=== PATIENT | male | born 1975 | race Caucasian/White ===

== ENCOUNTER 2022-09-25 17:45 | Inpatient (IN) | payer BC ==
[~2022-09-25] VITALS: Ht 180.3 cm; Wt 167.6 kg
[2022-09-25 18:19] LABS: BASOPHILS ABSOLUTE AUTO 0.02 K/mm3 (0.00-0.23); BASOPHILS PERCENT AUTO 0 % (0-2); EOSINOPHILS ABSOLUTE AUTO 0.03 K/mm3 (0.00-0.68); EOSINOPHILS PERCENT AUTO 0 % (0-6); Hematocrit 42.4 % (37.0-53.0); Hemoglobin 14.1 g/dL (13.5-17.5); IMMATURE GRAN ABSOLUTE AUTO 0.01 K/mm3 (0.00-0.10); IMMATURE GRAN PERCENT AUTO 0 % (0-1); LYMPHOCYTES ABSOLUTE AUTO 1.82 K/mm3 (0.84-5.20); LYMPHOCYTES PERCENT AUTO 23 % (21-46); MONOCYTES ABSOLUTE AUTO 0.68 K/mm3 (0.16-1.47); MONOCYTES PERCENT AUTO 9 % (4-13); Mean Corpuscular HGB 29.1 pg (26.0-34.0); Mean Corpuscular HGB Conc 33.3 g/dL (31.5-36.5); Mean Corpuscular Volume 88 fL (80-100); NEUTROPHILS ABSOLUTE AUTO 5.32 K/mm3 (1.96-9.15); NEUTROPHILS PERCENT AUTO 68 % (41-73); Platelet Count 248 K/mm3 (150-400); RDW Coefficient Variation 14.1 % (11.7-14.2); Red Blood Cell Count 4.84 M/mm3 (4.30-5.90); White Blood Cell Count 7.88 K/mm3 (4.00-11.30)
[2022-09-25 18:43] LABS: Albumin, Blood 3.8 g/dL (3.4-5.0); Bilirubin, Total 0.3 mg/dL (0.1-1.0); Bun/Creatinine Ratio 12.5 (12.0-20.0); Calcium, Blood 9.3 mg/dL (8.5-10.1); Creatinine, Blood 0.72 mg/dL (0.60-1.20); Globulin, Blood 3.8 g/dL (2.2-4.0); Potassium, Blood 3.9 mmol/L (3.5-5.5); Total Protein, Blood 7.6 g/dL (6.4-8.2)
[2022-09-25 19:06] LABS: Influenza A, PCR NEGATIVE (NEGATIVE); Influenza B, PCR NEGATIVE (NEGATIVE); Resp Syncytial Virus, PCR NEGATIVE (NEGATIVE); SARS-Cov-2 (COVID-19) PCR, MMC NEGATIVE (NEGATIVE)
--- NOTE | 2022-09-26 02:03 | NUR ---
ADMIT NOTE 47 YR OLD MALE ADMITTED TO FLOOR FROM THE ED WITH DX OF CHF EXACERBATION. ALERT AND ORIENTED X 4. DENIES PAIN. SOME SOB WITH EXERTION. SATS OVER 90% ROOM AIR. ORIENTED TO USE OF CALL LIGHT, CALL LIGHT IN REACH. RAILS UP X 3. DENIES CHEST PRESSURE. STATES FEELS LIKE "SPRAIN A MUSCLE" AND POINTS TO UPPER CENTRAL CHEST.
[2022-09-26 04:02] LABS: U Amphetamine Screen Not Detected; U Barbituate Screen Not Detected; U Benzodiazapine Screen Not Detected; U Buprenorphine Screen Not Detected; U Cannabinoids Screen Not Detected; U Cocaine Screen Not Detected; U Methadone Screen Not Detected; U Methamphetamine Screen Not Detected; U Opiates Screen Not Detected; U Oxycodone Screen Not Detected; U Phencyclidine Screen Not Detected; U Propoxyphene Screen Not Detected
--- NOTE | 2022-09-26 04:40 | NUR ---
HIGH SCHOOL COACH SUMMARY ADMITTED TO FLOOR EARLIER WITH CHF, ED RN REPORTED HAD CHEST CT - REVEALED SOME CHEST FLUIDS AFFIRMING CHF. HAD RECEIVED LASIX IN THE ED. AND POSSIBLE SLEEP APNEA. ONCE UP ON THE FLOOR, ALERT AND ORIENTED. REFUSED FLU SHOT. DENIED CHEST TYREE, REPORTED FELT LIKE A "SPRAIN" IN THE MUSCLE. VSS. HOB ELEVATED. LATER IN THE SHIFT, NOTED PT VOICED HAD DIFFICULTY BREATHING. MD NOTIFIED AND O2 ORDERED - RT NOTIFIED AND WILL FOLLOW UP. O2 AT 3L/MIN PER NC EFFECTIVE. RESTING QUIETLY AT THIS TIME. CALL LIGHT IN REACH. WILL CONTINUE TO MONITOR
[2022-09-26 05:40] LABS: Bun/Creatinine Ratio 13.9 (12.0-20.0); Calcium, Blood 8.7 mg/dL (8.5-10.1); Creatinine, Blood 0.72 mg/dL (0.60-1.20); Potassium, Blood 3.4 mmol/L (3.5-5.5)
--- NOTE | 2022-09-26 18:22 | NUR ---
SHIFT SUMMARY: PT A/O X 4 IND IN ROOM. PT WAS DROWSY MOST OF THE DAY REPORTING HE DID NOT GET ANY SLEEP LAST NIGHT. BP CONTINUE TO BE ELEVATED. PT DENIES CP OR SOB AT REST OR WITH ACTIVITY. TELE REPORTS NSR. PT URINATING WELL CLEAR YELLOW URINE WITH LASIX GIVEN. PT TOLERATING WELL. CPAP TO BE STARTED TONIGHT. PT AWARE. ECHO COMPLETED THIS AFTERNOON.
--- NOTE | 2022-09-27 02:14 | NUR ---
TELEMETRY EVENT THIS RN NOTIFIED OF 30-BEAT RUN OF V-TACH. BP 143/100, HR 107. THE PATIENT WAS SLEEPING WHEN THIS RN ENTERED THE ROOM. HE DENIED CHEST PAIN OR OTHER SYMTPOMS. DR. CARRILLO WAS CONTACTED AND INFORMED OF THE SITUATION. LAB ORDER OBTAINED. THIS RN WILL PROMPTLY NOTIFY DR. CARRILLO OF ANY ABNORMALITIES. WILL CONTINUE TO CLOSELY MONITOR.
--- NOTE | 2022-09-27 04:46 | NUR ---
DIRECTOR OF CODING SUMMARY REFER TO PREVIOUS NOTE REGARDING EPISODE OF V-TACH. A&OX4. PATIENT EFFECTIVELY COMMUNICATES NEEDS. PATIENT DENIES SYMPTOMS OF CHEST PAIN OR SHORTNESS OF BREATH. APAP ORDER OBTAINED SECONDARY TO ONSET OF RIGHT KNEE PAIN. PATIENT IS UNABLE TO STATE KNOWN INJURY. APAP NOT ADMINISTERED DUE TO PATIENT OBSERVED TO BE SLEEPING. BED LOW AND LOCKED. CALL LIGHT WITHIN REACH. THIS RN WILL CONTINUE TO MONITOR. DR. CARRILLO NOTIFIED OF PATIENT'S BP AND HR. NO NEW ORDERS AT THIS TIME.
[2022-09-27 06:03] LABS: Calcium, Blood 9.3 mg/dL (8.5-10.1); Creatinine, Blood 0.74 mg/dL (0.60-1.20); Magnesium, Blood 2.2 mg/dL (1.6-2.4); Potassium, Blood 3.3 mmol/L (3.5-5.5)
--- NOTE | 2022-09-27 17:30 | NUR ---
EVENING NOTE PT ALERT AND ORIENTED. UP ADLIB. HE DOESN'T ALWAYS US THE URINAL IN THE BATHROOM. ENCOURAGED FOR STRICT I/O. PT C/O OF LEFT MEDIAL KNEE PAIN. AREA PAINFUL TO GENTLY PALPATION. NO HEMATOMS OR SWELLING NOTED. HE CORRALATES IT TO THE LOVENOX INJECTION. HE REFUSED THE LOVENOX TODAY. LUNGS CTA, DECREASED BASES. VOICE QULAIT YLCER AND STRONG. NO SOB WITH AMBULATION TO BATHROOM. LASIX IV GIVEN PER ORDER. CONTINIOUS BIOX AT BEDSIDE D/T CPAP USE. SAT 95% RA WITH HR 108BPM. TELEMETRY SHOWING SINUS TACH. NO ECTOPY NOTED TODAY. CONTINUE POC.
--- NOTE | 2022-09-28 05:11 | NUR ---
OPERATIONS ENGINEER SUMMARY NO ACUTE EVENTS THROUGHOUT THE NIGHT. A&OX4. PATIENT EFFECTIVELY COMMUNICATES NEEDS. VSS. RR EVEN AND UNLABORED ON RA. NO REPORTS OF PAIN OR OTHER SYMPTOMS THIS SHIFT. PATIENT IS TOLERATING DIURETIC THERAPY. CPAP DONNED WHILE SLEEPING WITHOUT ANY REPORTED ISSUES. BED LOW AND LOCKED. CALL LIGHT WITHIN REACH. THIS RN WILL CONTINUE TO MONITOR.
[2022-09-28 08:21] LABS: Albumin, Blood 3.5 g/dL (3.4-5.0); Anion Gap 7 mmol/L (6-16); Blood Urea Nitrogen 23 mg/dL (8-24); Bun/Creatinine Ratio 31.3 (12.0-20.0); CHOL/HDL RATIO 4.7; CO2, Blood 27 mmol/L (21-32); Calcium, Blood 9.3 mg/dL (8.5-10.1); Chloride, Blood 100 mmol/L (98-108); Cholesterol 205 mg/dL (50-200); Creatinine, Blood 0.73 mg/dL (0.60-1.20); Glomerular Filtration Rate 112 (60-); Glucose, Blood 121 mg/dL (70-99); HDL Cholesterol 44 mg/dL (>39); LDL/HDL RATIO 3.2; Low Density Lipoprotein Chol 140 mg/dL (0-110); Phosphorus, Blood 4.9 mg/dL (2.5-4.9); Potassium, Blood 3.9 mmol/L (3.5-5.5); Sodium, Blood 134 mmol/L (136-145); Triglycerides 104 mg/dL (30-160); Very Low Density Lipoprot Chol 20 mg/dL (6-32)
[2022-09-29 06:00] LABS: Albumin, Blood 3.7 g/dL (3.4-5.0); Anion Gap 5 mmol/L (6-16); Blood Urea Nitrogen 32 mg/dL (8-24); Bun/Creatinine Ratio 34.1 (12.0-20.0); CO2, Blood 29 mmol/L (21-32); Calcium, Blood 9.5 mg/dL (8.5-10.1); Chloride, Blood 100 mmol/L (98-108); Creatinine, Blood 0.94 mg/dL (0.60-1.20); Glomerular Filtration Rate 100 (60-); Glucose, Blood 113 mg/dL (70-99); Phosphorus, Blood 4.7 mg/dL (2.5-4.9); Potassium, Blood 3.7 mmol/L (3.5-5.5); Sodium, Blood 134 mmol/L (136-145)
--- NOTE | 2022-09-29 07:42 | NUR ---
SHIFT SUMMARY NO ACUTE CHANGES THIS SHIFT. PT AXO AND INDEPENDENT TO THE BATHROOM. HAS A NIGHTOME OXYGEN STUDY TO DETERMINE IS PT NEEDS OXYGEN AT HOME. PT TO RECIEVE INSTRUCTION FROM INTER COM SERVICER BEFORE HOPEFUL DISCHARGE TODAY. BED IN LOWEST POSITION AND CALL LIGHT IN REACH.
[2022-09-29] MEDS ORDERED: ASPI81CH PO (11:51)
[2022-09-29] MEDS ORDERED: CARV25 PO (11:52)
[2022-09-29] MEDS ORDERED: FURO40 PO (11:53)
[2022-09-29] MEDS ORDERED: Prinivil10 MG PO (11:53)
[2022-09-29] MEDS ORDERED: PRAV20 PO (11:54)
[2022-09-29] MEDS ORDERED: SPIR25 PO (11:55)
--- NOTE | 2022-09-29 12:11 | NUR ---
ASSESSMENT CERTIFIED COURT INTERPRETER STUDENT PERFORMED SHIFT ASSESSMENT WITH THIS RN AT BEDSIDE. I AGREE WITH ASSESSMENT AND ASSISTED STUDENT WITH CHARTING THE ASSESSMENT.
--- NOTE | 2022-09-29 12:56 | NUR ---
SHIFT SUMMARY PATIENT AMBULATED TO PRIVATE VEHICLE PER PATIENT REQUEST. DISCHARGE INSTRUCTIONS EXPLAINED TO PATIENT. PATIENT STATED UNDERSTANDING. PACKET SENT WITH PATIENT. BELONGINGS SENT WITH PATIENT. PATIENT MOTHER AT BEDSIDE. IV REMOVED WITHOUT DIFFICULTY. TELE REMOVED WITHOUT DIFFICULTY. LASER BEAM COLOR SCANNER OPERATOR MET WITH PATIENT THIS MORNING TO GO OVER EDUCATION ABOUT DIET. PHARMACIST WENT OVER NEW MEDICATIONS WITH PATIENT AND MOTHER. MEDICATIONS FAXED TO PERFERRED PHARMACY. PATIENT HAS APPOINTMENT TO ESTABLISH PCP. FOLLOW UP WITH PHOTOVOLTAIC TECHNICIAN SCHEDULED FOR 10/17/22, AT 11:30AM, PATIENT INFORMED.
== END 2022-09-29 12:45 | disposition home or self-care (01) | DRG 291 ==
LOC: ER 17:45 → MEDS 17:46
PROVIDERS: Internal Medicine; Physician Assistant; ADMIT Internal Medicine
PROC: 5A09357 Assistance with Respiratory Ventilation, Less than 24 Consecutive Hours, Continuous Positive Airway Pressure (ICD-10-PCS; principal; 2022-09-26)
DX: I11.0 Hypertensive heart disease with heart failure (principal); I50.21 Acute systolic (congestive) heart failure; J96.01 Acute respiratory failure with hypoxia; I47.20 Ventricular tachycardia, unspecified; Z68.42 Body mass index [BMI] 45.0-49.9, adult; E87.1 Hypo-osmolality and hyponatremia; I42.0 Dilated cardiomyopathy; F10.20 Alcohol dependence, uncomplicated; I42.6 Alcoholic cardiomyopathy; I25.5 Ischemic cardiomyopathy; I34.0 Nonrheumatic mitral (valve) insufficiency; E66.01 Morbid (severe) obesity due to excess calories; G47.33 Obstructive sleep apnea (adult) (pediatric); Z20.822 Contact with and (suspected) exposure to COVID-19; E87.6 Hypokalemia; E78.5 Hyperlipidemia, unspecified; F12.10 Cannabis abuse, uncomplicated; Z71.41 Alcohol abuse counseling and surveillance of alcoholic
CPT/HCPCS: 0241U; 36415; 71046; 71260; 80048; 80053; 80061; 80069; 83690; 83735; 83880; 84100; 84484; 85025; 85379; 93005; 93010; 94644; 94660; 94664; 96372; 96374; 96375; 96376; 99285-25; A9270; C8929; G0378; J1650; J1940; J2060; Q9957; Q9967